=== PATIENT | male | born 1995 | race Caucasian/White ===

== ENCOUNTER 2018-10-01 05:43 | Day surgery (SDC) | payer OTHER ==
[~2018-10-01 05:43] MED LIST: CEFAZOLIN (20 MG/ML) IV SYG IV*; CEFAZOLIN 2 GM/50 ML (PMX) 50 ML IVPB; LACTATED RINGER'S 1,000 ML IV; LIDOCAINE 4% CR TOP
[2018-10-01] MEDS ORDERED: SEVOFLURANE 15 MIN (07:00)
[2018-10-01] MEDS ORDERED: HYDROmorphONE 1 MG/5 ML IV SYRINGE IV ×3 (07:30)
[2018-10-01] MEDS ORDERED: ONDANSETRON 4 MG INJ IV (07:30)
[2018-10-01] MEDS ORDERED: DIPHENHYDRAMINE 50 MG INJ IV (07:30)
[2018-10-01] MEDS ORDERED: LEVALBUTEROL (NEB) 1.25 MG/0.5 ML AMP HHN (07:30)
[2018-10-01] MEDS ORDERED: FENTAnyl 50 MCG/ML VIAL IV ×2 (07:30)
[2018-10-01] MEDS ORDERED: MIDAZOLAM 1 MG/ML 2 ML INJ IV (07:30)
[2018-10-01] MEDS ORDERED: MEPERIDINE 25 MG INJ IV (07:30)
[2018-10-01] MEDS ORDERED: MIDAZOLAM 1 MG/ML 2 ML INJ (07:32)
[2018-10-01] MEDS ORDERED: FENTAnyl 50 MCG/ML VIAL (07:32)
[2018-10-01] MEDS ORDERED: ROPIVACAINE 0.5 % 30 ML VIAL (07:35)
[2018-10-01] MEDS: POLYMYXIN/BACITRACIN 1L IRRIG (08:32)
[2018-10-01] MEDS ORDERED: LIDOCAINE 2% (SDV) 5 ML INJ (09:13)
[2018-10-01] MEDS ORDERED: PROPOFOL 20 ML (09:13)
[2018-10-01] MEDS ORDERED: ONDANSETRON 4 MG INJ (09:14)
[2018-10-01] MEDS ORDERED: METOCLOPRAMIDE 10 MG INJ (09:14)
[2018-10-01] MEDS ORDERED: DEXAMETHASONE 4 MG/ML 5 ML INJ (09:14)
[2018-10-01] MEDS ORDERED: HYDROmorphONE 2 MG/ML SYG (09:16)
== END 2018-10-01 13:50 | disposition home or self-care (01) ==
LOC: SDS 05:43
DX: S82.831K Other fracture of upper and lower end of right fibula, subsequent encounter for closed fracture with nonunion (principal); X58.XXXD Exposure to other specified factors, subsequent encounter
CPT/HCPCS: 27726; 73610-RT